=== PATIENT | male | born 1945 | race Caucasian/White ===

== ENCOUNTER 2024-11-02 09:38 | Outpatient (CLI) | payer OTHER ==
[2024-11-02 11:01] LABS: #Basophils 0.04 10x3/uL (0.0-0.2); #Eosinophils 0.24 10x3/uL (0.0-0.5); #Monocytes 0.55 10x3/uL (0.0-1.1); #Neutrophils 4.27 10x3/uL (1.5-8.4); %Basophils 0.6 % (0.0-2.0); %Eosinophils 3.8 % (0.0-6.0); %Lymphocytes 19.5 % (18.0-47.0); %Monocytes 8.6 % (0.0-10.0); %Neutrophils 67.0 % (40.0-75.0); Hematocrit 43.7 % (38.8-50.0); Hemoglobin 14.1 g/dL (13.5-17.5); Mean Corpuscular Hemoglobin 29.9 pg (27.0-33.0); Mean Corpuscular Volume 92.6 fL (81.2-95.1); Platelet Count 182 10x3/uL (150-450); Red Blood Cell (RBC) Count 4.72 10x6/uL (4.32-5.72); White Blood Cell (WBC) Count 6.37 10x3/uL (3.5-10.5)
[2024-11-02 11:56] LABS: Anion Gap 14 mmol/L (10-20); BUN (Urea Nitrogen) 11 mg/dL (8.4-25.7); Calc. Creatinine Clearance 0 mL/min (70-130); Calcium 9.1 mg/dL (7.8-10.44); Carbon Dioxide 25 mmol/L (23-31); Chloride 105 mmol/L (98-107); Glucose 152 mg/dL (83-110); Potassium 4.0 mmol/L (3.5-5.1); Sodium 140 mmol/L (136-145)
== END 2024-11-02 09:39 | disposition home or self-care (01) ==
LOC: CSHLAB 09:38
PROVIDERS: ATTEND Surgery
DX: Z01.812 Encounter for preprocedural laboratory examination (principal); K40.90 Unilateral inguinal hernia, without obstruction or gangrene, not specified as recurrent
CPT/HCPCS: 80048; 85025

== ENCOUNTER 2024-11-11 06:07 | Day surgery (SDC) | payer OTHER ==
[2024-11-02 10:03] VITALS: BMI 32.3
[2024-11-11] MEDS ORDERED: Bupivacaine/Epinephrine 0.25% 30 ML VIAL ONE (06:47)
[2024-11-11] MEDS ORDERED: CEFAZOLIN 2 GM VIAL ONE (06:47)
[2024-11-11] MEDS ORDERED: PROPOFOL 20 ML ONE (07:10)
[2024-11-11] MEDS ORDERED: Rocuronium Bromide 10 MG/ML (10ML VIAL) ONE (07:11)
[2024-11-11] MEDS ORDERED: Glycopyrrolate 0.2 MG/ML 5 ML SYRINGE ONE (07:11)
[2024-11-11] MEDS ORDERED: Lidocaine 1% PF 5 ML VIAL ONE (07:11)
[2024-11-11] MEDS ORDERED: SUGAMMADEX SODIUM 200 MG/2 ML VIAL ONE (09:21)
[2024-11-11] MEDS ORDERED: Ondansetron PF 4 MG/2 ML Vial ONE (09:21)
[2024-11-11] MEDS ORDERED: Benzocaine/Menthol 1 LOZ LOZ PO SCH (10:00)
== END 2024-11-11 12:05 | disposition home or self-care (01) ==
LOC: CSHSDC 06:07
PROVIDERS: ATTEND Surgery
PROC: 0YQA4ZZ Repair Bilateral Inguinal Region, Percutaneous Endoscopic Approach (ICD-10-PCS; principal; 2024-11-11)
DX: K40.20 Bilateral inguinal hernia, without obstruction or gangrene, not specified as recurrent (principal); I10 Essential (primary) hypertension; E03.9 Hypothyroidism, unspecified; E78.5 Hyperlipidemia, unspecified; K21.9 Gastro-esophageal reflux disease without esophagitis; Z79.899 Other long term (current) drug therapy; Z87.891 Personal history of nicotine dependence; Z88.8 Allergy status to other drugs, medicaments and biological substances; Z91.041 Radiographic dye allergy status; Z91.013 Allergy to seafood
CPT/HCPCS: 49650; C1781 ×2; J2704; S2900